=== PATIENT | male | born 1980 | race Caucasian/White ===

== ENCOUNTER 2023-05-30 14:20 | Emergency (ER) | payer SELFPAY ==
[~2023-05-30] VITALS: Ht 177.8 cm; Wt 68.2 kg
[2023-05-30 14:30] VITALS: BP 117/71; PULSE 93; RESP 18; TEMP 98; O2SAT 98
== END 2023-05-30 15:48 ==
LOC: ER 14:21
DX: Z02.89 Encounter for other administrative examinations (principal); M95.0 Acquired deformity of nose; Z79.899 Other long term (current) drug therapy
CPT/HCPCS: 99283